=== PATIENT | female | born 1950 | race Caucasian/White ===

== ENCOUNTER 2016-08-18 12:33 | Emergency (ER) | payer OTHER ==
--- NOTE | 2016-08-18 13:49 | ED NURSING NOTES ---
Clinical Report - Nurses [facility] [place] [address] 08/18/2016 12:35 Patient: ARMANDO MUSE TRIAGE Triage time 12:46. Acuity: LEVEL 4. Chief Complaint: Location of symptoms- (Right shoudler pain, shoulder impingement. Pt has chronic shoulder pain.). 12:58 08/18/16. SEPSIS SCREEN: Sepsis Screen. Negative (no infection suspected/documented). CANDIDA COMA SCORE: [place] Coma Scale: 15- eyes open spontaneously (4); best verbal response- oriented x 4 (5); best motor response- obeys commands (6). --12:58 Severo Underwood R.N. 12:46 08/18/16. BP: 160/94. HR: 83. RR: 20. O2 saturation: 94% on room air. Temp: 97.6 F (oral). Pain level now: 03/15. --12:58 Severo Underwood R.N. late entry -12:58. --13:46 Severo Underwood R.N. Weight: 102 kg stated. Height/Length: 66 inches Per Patient. BMI: 36.3. --12:54 Severo Underwood R.N. Medications MetFORMIN HCl Oral. --12:50 Severo Underwood R.N. Levoxyl Oral. --12:50 Severo Underwood R.N. Ibuprofen Oral. --12:50 Severo Underwood R.N. Adderall Oral 10 mg, 3x a day. --12:50 Severo Underwood R.N. Allergies morphine.(nausea, vomiting) --12:48 Severo Underwood R.N. Tylenol.(nausea, vomiting) --12:49 Severo Underwood R.N. History Arrived by private vehicle. Historian: patient. Provoking / relieving factors: worsened by movement. ( Pt has had to change doctors (her doctor retired). She cant't get in to her referral doctor until the .). SOCIAL HX: Smoker- current status unknown. No alcohol use or drug use. ABUSE ASSESSMENT: No report of abuse. --12:58 Severo Underwood R.N. SOCIAL HX: Former smoker, end date 2010 (cigarette). --13:46 Severo Underwood R.N. PROBLEMS: Abrasion(s). URI. Abscess. Cellulitis. Sinusitis. Contusion. Tetanus Status. Thyroid Disease. Lumbar Radiculopathy. Immunizations. LNMP - Last Normal Menstrual Period. --12:51 Severo Undrewood R.N. Diabetes Mellitus. --12:52 Severo Underwood R.N. ADDITIONAL SURGERIES: Bladder Suspension. Tonsillectomy. --12:51 Severo Underwood R.N. Interventions ID band on patient. To treatment room. --12:58 Severo Underwood R.N. PHYSICAL ASSESSMENT 12:58. Ambulatory to room. GENERAL / NEURO / PSYCH: Oriented X 4. Alert. Appears in pain. (manic). EXTREMITIES: Right shoulder: tenderness. Limited ROM (diminished abduction and adduction). --13:06 Severo Underwood R.N. NURSING PROGRESS NOTES 12:58 08/18/16. Patient gowned. Reassurance given. Two patient identifiers checked. Call light placed in reach. Bed placed in lowest position. Brakes of bed on. Patient ready for evaluation- chart flagged. --12:58 Severo Underwood R.N. 13:55 08/18/2016 Toradol (Ketorolac Tromethamine) IM 60 mg given. Given in the right deltoid. Allergies verified and confirmed 5 rights. --13:59 Severo Underwood R.N. 13:55 08/18/2016 Decadron (Dexamethasone Sodium Phosphate) IM 8 mg given. Given in the left deltoid. --13:59 Severo Underwood R.N. 14:08/18/2016 Toradol IM Response: no adverse reaction. --15:41 Severo Underwood R.N. 14:08/18/2016 Decadron IM Response: no adverse reaction. --15:42 Severo Underwood R.N. DISPOSITION / DISCHARGE Departure time: 14:Aug 18 2016. Condition at departure: improved. No learning barriers present. Discharge instructions provided and reviewed with the patient. Reviewed warnings. Reviewed medication(s). Treatments reviewed. Reviewed referrals. Patient verbalized understanding. Written instructions provided in Estonian. The patient was discharged home. She left the Emergency Department ambulatory and via private vehicle. --14:01 Eusebio Reynolds R.N. 14:00 08/18/16. BP: 139/88. HR: 81. RR: 18. O2 saturation: 97%. Temp: 98.2 F. Pain level now 10/13. --14:01 Eusebio Reynolds R.N. Locked/Released at 08/18/2016 18:47 by Severo Underwood R.N.
--- NOTE | 2016-08-18 13:49 | ED ORDER SUMMARY ---
..... Patient: ARMANDO MUSE OrderSheet [facility] VisitID: [id number] [place] [address] 65y, F Registration Date/Time: 08/18/2016 ORDER SHEET Weight: 102.0 kg (stated) Allergies: morphine, Tylenol GENERAL ORDERS: MEDICATION ORDERS: Toradol IM 60 mg (NOW) (13:44 08/18/2016 HBivens A.R.N.P.) (13:59 JSimbeck R.N.) Decadron IM 8 mg (NOW) (13:44 08/18/2016 HBivens A.R.N.P.) (13:59 JSimbeck R.N.) IV FLUIDS: ORDER SHEET NOTES: [Electronically signed by Severo Underwood R.N. (18:47 08/18/2016)] [Electronically signed by Irene MorganR.N.P. (18:50 08/18/2016)] [Electronically locked/signed by Severo Underwood R.N. (18:47 08/18/2016)]
--- NOTE | 2016-08-18 13:49 | ED ORDER SUMMARY ---
..... Patient: ARMANDO MUSE OrderSheet [facility] VisitID: [id number] [place] [address] 65y, F Registration Date/Time: 08/18/2016 ORDER SHEET Weight: 102.0 kg (stated) Allergies: morphine, Tylenol GENERAL ORDERS: MEDICATION ORDERS: Toradol IM 60 mg (NOW) (13:44 08/18/2016 HBivens A.R.N.P.) (13:59 JSimbeck R.N.) Decadron IM 8 mg (NOW) (13:44 08/18/2016 HBivens A.R.N.P.) (13:59 JSimbeck R.N.) IV FLUIDS: ORDER SHEET NOTES: [Electronically signed by Severo Underwood R.N. (18:47 08/18/2016)] [Electronically signed by Irene MorganR.N.P. (18:50 08/18/2016)] [Electronically locked/signed by Severo Underwood R.N. (18:47 08/18/2016)]
--- NOTE | 2016-08-18 13:49 | ED CLINICAL REPORT ---
Clinical Report - Physicians/Mid Levels [facility] [address] [place] [address] 08/18/2016 12:35 Patient: ARMANDO MUSE Time Seen: 13:29; initial patient contact, initial documentation, patient care assumed. Arrived- By private vehicle. Historian- patient. HISTORY OF PRESENT ILLNESS Chief Complaint: UPPER EXTREMITY PAIN. Modifying factors- worsened by movement of arm. Made better by prescription medications. Not made better by anything. This started years ago and is still present. Severity is described as being moderate in degree. The quality is noted to be "pain" and similar to prior episodes. It is described as radiating to the right upper extremity and right hand. Symptoms located in the area of the right shoulder. No chest pain, difficulty breathing, swelling, motor loss or repetitive hand use at work. She has not had redness. Mild sensory loss involving the right hand (intermittent numbess, sometimes after sleeping on it or using it). Patient denies an injury. Similar symptoms previously: Chronically, as bad. ( states percocet worked good in past, tylenol and morphine make her sick). Recent medical care: The patient was seen recently in the office. ( went to [facility] yesterday, and that dr did nothing but give her referral to sports medicine, and that appt is 08/30, her old dr did cortizone injections, this dr did not and no rx given either, pt upset with that dr's care). REVIEW OF SYSTEMS No neck pain or abdominal pain. All systems otherwise negative, except as recorded above. PAST HISTORY See nurses notes. PROBLEMS: Abrasion(s). URI. Abscess. Cellulitis. Sinusitis. Contusion. Tetanus Status. Thyroid Disease. Lumbar Radiculopathy. Immunizations. LNMP - Last Normal Menstrual Period. --12:51 Severo Underwood R.N. Diabetes Mellitus. --12:52 Severo Underwood R.N. ADDITIONAL SURGERIES: Bladder Suspension. Tonsillectomy. --12:51 Severo Underwood R.N. SOCIAL HISTORY Former smoker. No alcohol use or drug use. No recent travel. Is a local resident. FAMILY HISTORY Negative. ADDITIONAL NOTES The nursing notes have been reviewed with agreement regarding the chief complaint, HPI, ROS, PMH and patient medications and allergies. PHYSICAL EXAM Vital Signs: 08/18/2016 12:46 BP: 160/94. HR: 83. RR: 20. O2 saturation: 94%. Temp: 97.6 F. Pain level now: 8/10. Have been reviewed as abnormal and appear to be correct. Appearance: Alert. Oriented X3. No acute distress. Eyes: Pupils equal, round and reactive to light. Eyes normal inspection. Neck: Normal inspection. Neck supple. CVS: Normal heart rate and rhythm. Heart sounds normal. Respiratory: No respiratory distress. Breath sounds normal. Back: Normal inspection. No tenderness. ROM normal. Skin: Skin intact. Skin warm and dry. Normal skin color. Normal skin turgor. Extremities: Upper extremities abnormal to inspection. Upper extremities do not exhibit normal ROM. Upper extremities nontender. No upper extremity edema. Right shoulder. Limited ROM due to pain (diminished abduction and external rotation). Neurovascular intact distally. No erythema, tenderness, swelling, abrasion or ecchymosis. No puncture wound, foreign body or deformity. No localization or joint effusion. Extremities otherwise negative. Neuro: Oriented X 3. No motor deficit. No sensory deficit. PROGRESS AND PROCEDURES Course of Care: 16:16 08/18/16. staff informing pt called twice, first phone call, pt reported to LIAT Carmichael, that pharmacy didn't have the percocet, Jany asked my input, pt instructed to have pharmacy call me to substitute med rivet bucker Xu now informing me pt called mad, yelling at him, asking why would I prescribe that med that med was prescribed because pt asked specifically for percocet without tylenol pt on her way back up here demanding a new rx 17:08/18/16. pt now here, demanding new rx, changed to Ultram, pt does not want Ultram, pt still demanding plain percocet, pt also saying now she is going to the board to complain, went thru list of meds in computer list, plain percocet is not an option at the 5mg strength pt demanding, now attempting percodan and hand changing the strength, concerned that pharmacy will not fill it if changed by hand 17:13 08/18/16. dr zafar showing me a different way to order oxycodne, so attempting that. Patient counseled in person regarding the patient's stable condition and diagnosis. 13:49. Differential Diagnosis: I considered stress fracture, degenerative joint disease, arthritis, gout, pseudogout, rotator cuff tear, acromioclavicular separation, lateral epicondylitis, tendonitis, myositis, fasciitis and bursitis as a possible cause of upper extremity pain in this patient. This is a partial list of diagnoses considered. Other possible considerations: nerve impingement, substance abuse, chronic shoulder pain. Above considerations are based on history and physical exam. Differential diagnosis was discussed with patient. Disposition: Discharged home in good and improved condition (13:49). Condition: good and stable. CLINICAL IMPRESSION Chronic upper extremity pain involving the right shoulder. INSTRUCTIONS (htn). Warnings: GENERAL WARNINGS: Return or contact your physician immediately if your condition worsens or changes unexpectedly, if not improving as expected, or if other problems arise. Specifically return if problem worsens. Prescription Medications: Naproxen 500 mg tablets: take 1 orally every 12 hours as needed for pain. Dispense twenty (20). No refills. Medrol Dosepak: take according to package directions. Dispense one (1) dosepak. No refills. Substitution is permissible. Oxycodone 5 mg tablets: take 1 orally every 6 hours as needed for pain. Dispense fifteen (15). No refills. Follow-up: Follow up with a physical therapist Sports Medicine in about two weeks as scheduled even if well. Summary of care provided to patient. Screening today revealed the patient's blood pressure to be in the hypertensive range. The patient should follow up with a primary care provider for blood pressure management. Understanding of the discharge instructions verbalized by patient. (Electronically signed by Irene Morgan A.R.N.P. 08/18/2016 18:50)
--- NOTE | 2016-08-18 13:49 | ED NURSING NOTES ---
Clinical Report - Nurses [facility] [place] [address] 08/18/2016 12:35 Patient: ARMANDO MUSE TRIAGE Triage time 12:46. Acuity: LEVEL 4. Chief Complaint: Location of symptoms- (Right shoudler pain, shoulder impingement. Pt has chronic shoulder pain.). 12:58 08/18/16. SEPSIS SCREEN: Sepsis Screen. Negative (no infection suspected/documented). CANDIDA COMA SCORE: [place] Coma Scale: 15- eyes open spontaneously (4); best verbal response- oriented x 4 (5); best motor response- obeys commands (6). --12:58 Severo Underwood R.N. 12:46 08/18/16. BP: 160/94. HR: 83. RR: 20. O2 saturation: 94% on room air. Temp: 97.6 F (oral). Pain level now: 03/15. --12:58 eSvero Underwood R.N. late entry -12:58. --13:46 Severo Underwood R.N. Weight: 102 kg stated. Height/Length: 66 inches Per Patient. BMI: 36.3. --12:54 Severo Underwood R.N. Medications MetFORMIN HCl Oral. --12:50 Severo Underwood R.N. Levoxyl Oral. --12:50 Severo Underwood R.N. Ibuprofen Oral. --12:50 Severo Underwood R.N. Adderall Oral 10 mg, 3x a day. --12:50 Severo Underwood R.N. Allergies morphine.(nausea, vomiting) --12:48 Severo Underwood R.N. Tylenol.(nausea, vomiting) --12:49 Severo Underwood R.N. History Arrived by private vehicle. Historian: patient. Provoking / relieving factors: worsened by movement. ( Pt has had to change doctors (her doctor retired). She cant't get in to her referral doctor until the .). SOCIAL HX: Smoker- current status unknown. No alcohol use or drug use. ABUSE ASSESSMENT: No report of abuse. --12:58 Severo Underwood R.N. SOCIAL HX: Former smoker, end date 2010 (cigarette). --13:46 Severo Underwood R.N. PROBLEMS: Abrasion(s). URI. Abscess. Cellulitis. Sinusitis. Contusion. Tetanus Status. Thyroid Disease. Lumbar Radiculopathy. Immunizations. LNMP - Last Normal Menstrual Period. --12:51 Severo Underwood R.N. Diabetes Mellitus. --12:52 Severo Underwood R.N. ADDITIONAL SURGERIES: Bladder Suspension. Tonsillectomy. --12:51 Severo Underwood R.N. Interventions ID band on patient. To treatment room. --12:58 Severo Underwood R.N. PHYSICAL ASSESSMENT 12:58. Ambulatory to room. GENERAL / NEURO / PSYCH: Oriented X 4. Alert. Appears in pain. (manic). EXTREMITIES: Right shoulder: tenderness. Limited ROM (diminished abduction and adduction). --13:06 Severo Underwood R.N. NURSING PROGRESS NOTES 12:58 08/18/16. Patient gowned. Reassurance given. Two patient identifiers checked. Call light placed in reach. Bed placed in lowest position. Brakes of bed on. Patient ready for evaluation- chart flagged. --12:58 Severo Underwood R.N. 13:55 08/18/2016 Toradol (Ketorolac Tromethamine) IM 60 mg given. Given in the right deltoid. Allergies verified and confirmed 5 rights. --13:59 Severo Underwood R.N. 13:55 08/18/2016 Decadron (Dexamethasone Sodium Phosphate) IM 8 mg given. Given in the left deltoid. --13:59 Severo Underwood R.N. 14:08/18/2016 Toradol IM Response: no adverse reaction. --15:41 Severo Underwood R.N. 14:08/18/2016 Decadron IM Response: no adverse reaction. --15:42 Severo Underwood R.N. DISPOSITION / DISCHARGE Departure time: 14:Aug 18 2016. Condition at departure: improved. No learning barriers present. Discharge instructions provided and reviewed with the patient. Reviewed warnings. Reviewed medication(s). Treatments reviewed. Reviewed referrals. Patient verbalized understanding. Written instructions provided in Swedish. The patient was discharged home. She left the Emergency Department ambulatory and via private vehicle. --14:01 Eusebio Reynolds R.N. 14:00 08/18/16. BP: 139/88. HR: 81. RR: 18. O2 saturation: 97%. Temp: 98.2 F. Pain level now 10/13. --14:01 Eusebio Reynolds R.N. Locked/Released at 08/18/2016 18:47 by Severo Underwood R.N.
--- NOTE | 2016-08-18 18:51 | ED DISCHARGE INSTRUCTIONS ---
Patient: ARMANDO MUSE General Instructions [facility] VisitID: [id number] [place] [address] 65y, F Registration Date/Time: 08/18/2016 Chronic upper extremity pain involving the right shoulder. INSTRUCTIONS (htn). Warnings: GENERAL WARNINGS: Return or contact your physician immediately if your condition worsens or changes unexpectedly, if not improving as expected, or if other problems arise. Specifically return if problem worsens. Prescription Medications: Naproxen 500 mg tablets: take 1 orally every 12 hours as needed for pain. Dispense twenty (20). No refills. Medrol Dosepak: take according to package directions. Dispense one (1) dosepak. No refills. Substitution is permissible. Oxycodone 5 mg tablets: take 1 orally every 6 hours as needed for pain. Dispense fifteen (15). No refills. Follow-up: Follow up with a physical therapist Sports Medicine in about two weeks as scheduled even if well. Summary of care provided to patient. Screening today revealed the patient's blood pressure to be in the hypertensive range. The patient should follow up with a primary care provider for blood pressure management. Understanding of the discharge instructions verbalized by patient. ADDITIONAL INFORMATION Osteoarthritis Osteoarthritis (also called Degenerative Joint Disease) is the most common form of arthritis in adults over 50. It is not the same as Rheumatoid Arthritis. The exact cause is not known but may be related to excess wear and tear on the joint over a long period of time. Prior injury to that joint, or repeated stress on a joint can also cause this type of arthritis. Osteoarthritis most often affects the hands, knees, spine and hips (in that order). The most common symptoms are joint stiffness, pain and swelling. Home Care: When a joint is more sore than usual, rest that joint for a day or two. Heat is very helpful. This can be provided by taking hot baths, applying a heating pad for up to 30 minutes at a time. Because symptoms are usually worse in the morning, many patients like to take a hot bath just after awakening to relax the muscle and soothe the joints. Exercise is the most important part of home treatment for osteoarthritis. This prevents the muscles and ligaments around the joint from becoming weak and helps maintain the full range of joint motion. This limits further damage to the joint. If you are overweight, this puts a lot of extra strain on weight-bearing joints of the lower back, hips, knees, feet and ankles. Losing weight will improve your arthritis symptoms in these joints. Talk to your doctor about a safe and effective weight loss program for yourself. Anti-inflammatory medicine such as ibuprofen (Advil, Motrin) or naproxen (Aleve) is often used to treat this condition. If this alone is not helping, your doctor may prescribe a stronger medicine. If narcotic pain medicines have been prescribed, they should be used in addition to anti-inflammatory drugs and only for severe pain. Follow Up with your doctor as advised by our staff. Get Prompt Medical Attention if any of the following occur: Redness or swelling of a painful joint Fever of 100.4F (38C) or higher, or as directed by your healthcare provider Worsening joint pain Shoulder Pain (Uncertain Cause) Shoulder pain often arises from the structures that surround the shoulder joint (the joint capsule, ligaments, tendons, muscles, and bursa). The joint itself contains cartilage that can become worn out or injured and can also be a source of pain. The correct treatment requires knowing the cause of the pain. Sometimes it is difficult to diagnose the exact cause of shoulder pain and referral to a specialist may be required. You may eventually need special tests such as CT scan, MRI, or arthroscopy (a procedure that uses special instruments to look inside the joint through a small incision). Shoulder pain can be treated initially with a sling or shoulder immobilizer and anti-inflammatory medicines such as ibuprofen. Special shoulder exercises may be needed. Follow-up with a specialist is important when pain is severe or does not go away after a few weeks. Home Care: If a sling was provided, leave it in place for the time advised by your doctor. If you are unsure how long to wear it, ask for advice. If the sling becomes loose, adjust it so that your forearm is level with the ground and the shoulder feels well supported. Apply an ice pack (ice cubes in a plastic bag, wrapped in a towel) over the injured area for 20 minutes every 1 to 2 hours the first day for pain relief. Continue this 3 to 4 times a day until the pain and swelling go away. You may use acetaminophen (Tylenol) or ibuprofen (Motrin, Advil) to control pain, unless another pain medicine was prescribed. (NOTE: If you have chronic liver or kidney disease or ever had a stomach ulcer or GI bleeding, talk with your doctor before using these medicines.) Shoulder pain may seem worse at night, when there is less to distract you from the pain. If you sleep on your side, try to keep your weight off your painful shoulder. Propping pillows behind you may prevent you from rolling over onto that shoulder during sleep. Shoulder joints become stiff if left in a sling for too long. [id number] exercises should usually be started within the first 10 days after injury. Consult your doctor on what type of exercises to do and how soon to start. You may remove the sling to shower or bathe. Follow Up with your doctor, or as advised by our staff, if you are not starting to improve within the next 5 days. Get Prompt Medical Attention if any of the following occur: Pain or swelling increases Hand or fingers becomes cold, blue, numb, or tingly Large amount of bruising of the shoulder or upper arm Naproxen Sodium Oral tablet What is this medicine? NAPROXEN (na PROX en) is a non-steroidal anti-inflammatory drug (NSAID). It is used to reduce swelling and to treat pain. This medicine may be used for dental pain, headache, or painful monthly periods. It is also used for painful joint and muscular problems such as arthritis, tendinitis, bursitis, and gout. How should I use this medicine? Take this medicine by mouth with a glass of water. Follow the directions on the prescription label. Take it with food if your stomach gets upset. Try to not lie down for at least 10 minutes after you take it. Take your medicine at regular intervals. Do not take your medicine more often than directed. Long-term, continuous use may increase the risk of heart attack or stroke. A special MedGuide will be given to you by the pharmacist with each prescription and refill. Be sure to read this information carefully each time. Talk to your time analysis clerk regarding the use of this medicine in children. Special care may be needed. What side effects may I notice from receiving this medicine? Side effects that you should report to your doctor or health director of career services as soon as possible: black or bloody stools, blood in the urine or vomit blurred vision chest pain difficulty breathing or wheezing nausea or vomiting severe stomach pain skin rash, skin redness, blistering or peeling skin, hives, or itching slurred speech or weakness on one side of the body swelling of eyelids, throat, lips unexplained weight gain or swelling unusually weak or tired yellowing of eyes or skin Side effects that usually do not require medical attention (report to your doctor or health director of career services if they continue or are bothersome): constipation headache heartburn What may interact with this medicine? alcohol aspirin cidofovir diuretics lithium methotrexate other drugs for inflammation like ketorolac or prednisone pemetrexed probenecid warfarin What if I miss a dose? If you miss a dose, take it as soon as you can. If it is almost time for your next dose, take only that dose. Do not take double or extra doses. Where should I keep my medicine? Keep out of the reach of children. Store at room temperature between 15 and 30 degrees C (59 and 86 degrees F). Keep container tightly closed. Throw away any unused medicine after the expiration date. What should I tell my health care provider before I take this medicine? They need to know if you have any of these conditions: asthma cigarette smoker drink more than 3 alcohol containing drinks a day heart disease or circulation problems such as heart failure or leg edema (fluid retention) high blood pressure kidney disease liver disease stomach bleeding or ulcers an unusual or allergic reaction to naproxen, aspirin, other NSAIDs, other medicines, foods, dyes, or preservatives or trying to get breast-feeding What should I watch for while using this medicine? Tell your doctor or health director of career services if your pain does not get better. Talk to your doctor before taking another medicine for pain. Do not treat yourself. This medicine does not prevent heart attack or stroke. In fact, this medicine may increase the chance of a heart attack or stroke. The chance may increase with longer use of this medicine and in people who have heart disease. If you take aspirin to prevent heart attack or stroke, talk with your doctor or health director of career services. Do not take other medicines that contain aspirin, ibuprofen, or naproxen with this medicine. Side effects such as stomach upset, nausea, or ulcers may be more likely to occur. Many medicines available without a prescription should not be taken with this medicine. This medicine can cause ulcers and bleeding in the stomach and intestines at any time during treatment. Do not smoke cigarettes or drink alcohol. These increase irritation to your stomach and can make it more susceptible to damage from this medicine. Ulcers and bleeding can happen without warning symptoms and can cause . You may get drowsy or dizzy. Do not drive, use machinery, or do anything that needs mental alertness until you know how this medicine affects you. Do not stand or sit up quickly, especially if you are an older patient. This reduces the risk of dizzy or fainting spells. This medicine can cause you to bleed more easily. Try to avoid damage to your teeth and gums when you brush or floss your teeth. Methylprednisolone Oral tablet What is this medicine? METHYLPREDNISOLONE (meth ill pred NISS oh lone) is a corticosteroid. It is commonly used to treat inflammation of the skin, joints, lungs, and other organs. Common conditions treated include asthma, allergies, and arthritis. It is also used for other conditions, such as blood disorders and diseases of the adrenal glands. How should I use this medicine? Take this medicine by mouth with a drink of water. Follow the directions on the prescription label. Take it with food or milk to avoid stomach upset. If you are taking this medicine once a day, take it in the morning. Do not take more medicine than you are told to take. Do not suddenly stop taking your medicine because you may develop a severe reaction. Your doctor will tell you how much medicine to take. If your doctor wants you to stop the medicine, the dose may be slowly lowered over time to avoid any side effects. Talk to your time analysis clerk regarding the use of this medicine in children. Special care may be needed. What side effects may I notice from receiving this medicine? Side effects that you should report to your doctor or health director of career services as soon as possible: allergic reactions like skin rash, itching or hives, swelling of the face, lips, or tongue eye pain, decreased or blurred vision, or bulging eyes fever, sore throat, sneezing, cough, or other signs of infection, wounds that will not heal increased thirst mental depression, mood swings, mistaken feelings of self importance or of being mistreated pain in hips, back, ribs, arms, shoulders, or legs swelling of the ankles, feet, hands trouble passing urine or change in the amount of urine Side effects that usually do not require medical attention (report to your doctor or health director of career services if they continue or are bothersome): confusion, excitement, restlessness headache nausea, vomiting skin problems, acne, thin and shiny skin weight gain What may interact with this medicine? Do not take this medicine with any of the following medications: mifepristone This medicine may also interact with the following medications: tacrolimus vaccines warfarin What if I miss a dose? If you miss a dose, take it as soon as you can. If it is almost time for your next dose, talk to your doctor or health director of career services. You may need to miss a dose or take an extra dose. Do not take double or extra doses without advice. Where should I keep my medicine? Keep out of the reach of children. Store at room temperature between 20 and 25 degrees C (68 and 77 degrees F). Throw away any unused medicine after the expiration date. What should I tell my health care provider before I take this medicine? They need to know if you have any of these conditions: Rosetta's syndrome diabetes glaucoma heart problems or disease high blood pressure infection such as herpes, measles, tuberculosis, or chickenpox kidney disease liver disease mental problems myasthenia gravis osteoporosis seizures stomach ulcer or intestine disease including colitis and diverticulitis thyroid problem an unusual or allergic reaction to lactose, methylprednisolone, other medicines, foods, dyes, or preservatives or trying to get breast-feeding What should I watch for while using this medicine? Visit your doctor or health director of career services for regular checks on your progress. If you are taking this medicine for a long time, carry an identification card with your name and address, the type and dose of your medicine, and your doctor's name and address. The medicine may increase your risk of getting an infection. Stay away from people who are sick. Tell your doctor or health director of career services if you are around anyone with measles or chickenpox. If you are going to have surgery, tell your doctor or health director of career services that you have taken this medicine within the last twelve months. Ask your doctor or health director of career services about your diet. You may need to lower the amount of salt you eat. The medicine can increase your blood sugar. If you are a diabetic check with your doctor if you need help adjusting the dose of your diabetic medicine. Oxycodone Hydrochloride, Acetaminophen Oral tablet What is this medicine? ACETAMINOPHEN; OXYCODONE (a set a MIGUEL enzo fen; ox i KOE done) is a pain reliever. It is used to treat mild to moderate pain. How should I use this medicine? Take this medicine by mouth with a full glass of water. Follow the directions on the prescription label. Take your medicine at regular intervals. Do not take your medicine more often than directed. Talk to your time analysis clerk regarding the use of this medicine in children. Special care may be needed. Patients over 65 years old may have a stronger reaction and need a smaller dose. What side effects may I notice from receiving this medicine? Side effects that you should report to your doctor or health director of career services as soon as possible: allergic reactions like skin rash, itching or hives, swelling of the face, lips, or tongue breathing difficulties, wheezing confusion light headedness or fainting spells severe stomach pain yellowing of the skin or the whites of the eyes Side effects that usually do not require medical attention (report to your doctor or health director of career services if they continue or are bothersome): dizziness drowsiness nausea vomiting What may interact with this medicine? alcohol antihistamines barbiturates like amobarbital, butalbital, butabarbital, methohexital, pentobarbital, phenobarbital, thiopental, and secobarbital benztropine drugs for bladder problems like solifenacin, trospium, oxybutynin, tolterodine, hyoscyamine, and methscopolamine drugs for breathing problems like ipratropium and tiotropium drugs for certain stomach or intestine problems like propantheline, homatropine methylbromide, glycopyrrolate, atropine, belladonna, and dicyclomine general anesthetics like etomidate, ketamine, nitrous oxide, propofol, desflurane, enflurane, halothane, isoflurane, and sevoflurane medicines for depression, anxiety, or psychotic disturbances medicines for sleep muscle relaxants naltrexone narcotic medicines (opiates) for pain phenothiazines like perphenazine, thioridazine, chlorpromazine, mesoridazine, fluphenazine, prochlorperazine, promazine, and trifluoperazine scopolamine tramadol trihexyphenidyl What if I miss a dose? If you miss a dose, take it as soon as you can. If it is almost time for your next dose, take only that dose. Do not take double or extra doses. Where should I keep my medicine? Keep out of the reach of children. This medicine can be abused. Keep your medicine in a safe place to protect it from theft. Do not share this medicine with anyone. Selling or giving away this medicine is dangerous and against the law. Store at room temperature between 20 and 25 degrees C (68 and 77 degrees F). Keep container tightly closed. Protect from light. This medicine may cause accidental overdose and if it is taken by other adults, children, or pets. Flush any unused medicine down the toilet to reduce the chance of harm. Do not use the medicine after the expiration date. What should I tell my health care provider before I take this medicine? They need to know if you have any of these conditions: brain tumor Crohn's disease, inflammatory bowel disease, or ulcerative colitis drink more than 3 alcohol containing drinks per day drug abuse or addiction head injury heart or circulation problems kidney disease or problems going to the bathroom liver disease lung disease, asthma, or breathing problems an unusual or allergic reaction to acetaminophen, oxycodone, other opioid analgesics, other medicines, foods, dyes, or preservatives or trying to get breast-feeding What should I watch for while using this medicine? Tell your doctor or health director of career services if your pain does not go away, if it gets worse, or if you have new or a different type of pain. You may develop tolerance to the medicine. Tolerance means that you will need a higher dose of the medication for pain relief. Tolerance is normal and is expected if you take this medicine for a long time. Do not suddenly stop taking your medicine because you may develop a severe reaction. Your body becomes used to the medicine. This does NOT mean you are addicted. Addiction is a behavior related to getting and using a drug for a non-medical reason. If you have pain, you have a medical reason to take pain medicine. Your doctor will tell you how much medicine to take. If your doctor wants you to stop the medicine, the dose will be slowly lowered over time to avoid any side effects. You may get drowsy or dizzy. Do not drive, use machinery, or do anything that needs mental alertness until you know how this medicine affects you. Do not stand or sit up quickly, especially if you are an older patient. This reduces the risk of dizzy or fainting spells. Alcohol may interfere with the effect of this medicine. Avoid alcoholic drinks. There are different types of narcotic medicines (opiates) for pain. If you take more than one type at the same time, you may have more side effects. Give your health care provider a list of all medicines you use. Your doctor will tell you how much medicine to take. Do not take more medicine than directed. Call emergency for help if you have problems breathing. The medicine will cause constipation. Try to have a bowel movement at least every 2 to 3 days. If you do not have a bowel movement for 3 days, call your doctor or health director of career services. Do not take Tylenol (acetaminophen) or medicines that have acetaminophen with this medicine. Too much acetaminophen can be very dangerous. Many nonprescription medicines contain acetaminophen. Always read the labels carefully to avoid taking more acetaminophen. You have been given the following additional information: Osteoarthritis Shoulder Pain (Uncertain Cause) Naproxen Sodium Oral tablet Methylprednisolone Oral tablet Oxycodone Hydrochloride, Acetaminophen Oral tablet (Electronically signed by Irene Morgan A.R.N.P. 08/18/2016 18:50)
--- NOTE | 2016-08-18 18:51 | ED MAR SUMMARY ---
..... Medication Administration Record [facility] [address] [place] [address] Patient: ARMANDO MUSE Visit ID: [id number] 65y, F Weight: 102.0 kg Height/Length: 66 in BMI: 36.3 ALLERGIES: Tylenol, morphine Given 13:08/18/2016 Severo Underwood R.N. Medication Administered: TORADOL [IM] (KETOROLAC TROMETHAMINE), Dose: 60 mg IM. Medication Ordered: Toradol IM 60 mg (NOW). Given 13:08/18/2016 Severo Underwood R.N. Medication Administered: DECADRON [IM] (DEXAMETHASONE SODIUM PHOSPHATE), Dose: 8 mg IM. Medication Ordered: Decadron IM 8 mg (NOW).
--- NOTE | 2016-08-18 18:51 | ED MED RECONCILIATION SUMMARY ---
Patient: ARMANDO MUSE Medication Reconciliation Report [facility] VisitID: [id number] [place] [address] 65y, F Registration Date/Time: 08/18/2016 Weight: 102.0 kg Height/Length: 66 in. BMI: 36.3 ALLERGIES: morphine, Tylenol The patient's Home Medications are listed below: THE FOLLOWING MEDICATIONS NEED TO BE RECONCILED: Adderall Oral 10 mg, 3x a day Ibuprofen Oral Levoxyl Oral MetFORMIN HCl Oral The source(s) of the original Home Medication information: Not obtained. The following Medications were given to the patient in the Emergency Department: Toradol [IM] IM 60 mg, administered: 08/18/2016 1:55:00 PM Decadron [IM] IM 8 mg, administered: 08/18/2016 1:55:00 PM The following Medications were prescribed to the patient: Naproxen 500 mg tablets: take 1 orally every 12 hours as needed for pain. Dispense twenty (20). No refills. -- Irene Morgan A.R.N.P. Medrol Dosepak: take according to package directions. Dispense one (1) dosepak. No refills. Substitution is permissible. -- Irene Morgan A.R.N.P. Oxycodone 5 mg tablets: take 1 orally every 6 hours as needed for pain. Dispense fifteen (15). No refills. -- Irene Morgan A.R.N.P.
--- NOTE | 2016-08-18 18:51 | ED MAR SUMMARY ---
..... Medication Administration Record [facility] [address] [place] [address] Patient: ARMANDO MUSE Visit ID: [id number] 65y, F Weight: 102.0 kg Height/Length: 66 in BMI: 36.3 ALLERGIES: Tylenol, morphine Given 13:08/18/2016 Severo Underwood R.N. Medication Administered: TORADOL [IM] (KETOROLAC TROMETHAMINE), Dose: 60 mg IM. Medication Ordered: Toradol IM 60 mg (NOW). Given 13:08/18/2016 Severo Underwood R.N. Medication Administered: DECADRON [IM] (DEXAMETHASONE SODIUM PHOSPHATE), Dose: 8 mg IM. Medication Ordered: Decadron IM 8 mg (NOW).
--- NOTE | 2016-08-18 18:51 | ED MED RECONCILIATION SUMMARY ---
Patient: ARMANDO MUSE Medication Reconciliation Report [facility] VisitID: [id number] [place] [address] 65y, F Registration Date/Time: 08/18/2016 Weight: 102.0 kg Height/Length: 66 in. BMI: 36.3 ALLERGIES: morphine, Tylenol The patient's Home Medications are listed below: THE FOLLOWING MEDICATIONS NEED TO BE RECONCILED: Adderall Oral 10 mg, 3x a day Ibuprofen Oral Levoxyl Oral MetFORMIN HCl Oral The source(s) of the original Home Medication information: Not obtained. The following Medications were given to the patient in the Emergency Department: Toradol [IM] IM 60 mg, administered: 08/18/2016 1:55:00 PM Decadron [IM] IM 8 mg, administered: 08/18/2016 1:55:00 PM The following Medications were prescribed to the patient: Naproxen 500 mg tablets: take 1 orally every 12 hours as needed for pain. Dispense twenty (20). No refills. -- Irene Morgan A.R.N.P. Medrol Dosepak: take according to package directions. Dispense one (1) dosepak. No refills. Substitution is permissible. -- Irene Morgan A.R.N.P. Oxycodone 5 mg tablets: take 1 orally every 6 hours as needed for pain. Dispense fifteen (15). No refills. -- Irene Morgan A.R.N.P.
== END 2016-08-18 14:00 | disposition home or self-care (01) ==
LOC: ED SRH 12:33
DX: G89.29 Other chronic pain (principal); M25.511 Pain in right shoulder; E11.9 Type 2 diabetes mellitus without complications; Z79.84 Long term (current) use of oral hypoglycemic drugs; Z79.1 Long term (current) use of non-steroidal anti-inflammatories (NSAID); Z88.5 Allergy status to narcotic agent; Z88.6 Allergy status to analgesic agent; Z87.891 Personal history of nicotine dependence

== ENCOUNTER 2017-01-16 12:07 | Emergency (ER) | payer OTHER ==
--- NOTE | 2017-01-16 13:37 | ED CLINICAL REPORT ---
Clinical Report - Physicians/Mid Levels [facility] [address] [place] [address] 01/16/2017 12:08 Patient: ARMANDO MUSE Time Seen: 13:14; initial patient contact, initial documentation, patient care assumed. Arrived- By private vehicle. Historian- patient. HISTORY OF PRESENT ILLNESS Chief Complaint: EARACHE. Modifying factors. Not worsened by anything. Not relieved by anything. This started about 3 days ago and is still present. It was abrupt in onset and has been constant. Location- left ear. The pain is described as severe. The patient has had moderate left ear pain. No ear drainage, hearing loss, nasal discharge or congestion or sinus pressure. No complaint of foreign body in the ear, ear trauma or sore throat. (pain is on L side of neck, feels spasms in neck, pain shoots into face, into eye, feels similar to thing she had on R side of neck when she had a nerve impingement issue, went away after help from chiropractor, pain also goes into jaw and shoulder). Similar symptoms previously: None. Recent medical care: Not recently seen/assessed. REVIEW OF SYSTEMS No fever, difficulty breathing or chest pain. All systems otherwise negative, except as recorded above. PAST HISTORY See nurses notes. PROBLEMS: Upper Extremity Pain. Diabetes Mellitus. URI. Abscess. Cellulitis. Sinusitis. Contusion. Tetanus Status. Thyroid Disease. Lumbar Radiculopathy. Immunizations. --12:17 Shanda Mcdermott RSarmadN. ADDITIONAL SURGERIES: Bladder Suspension. Tonsillectomy. --12:17 Shanda Mcdermott RSarmadN. SOCIAL HISTORY Former smoker. Not exposed to second-hand smoke at home. No alcohol use or drug use. No recent travel. Is a local resident. FAMILY HISTORY Negative. ADDITIONAL NOTES The nursing notes have been reviewed with agreement regarding the chief complaint, HPI, ROS, PMH and patient medications and allergies. PHYSICAL EXAM Vital Signs: 01/16/2017 12:16 BP: 134/69. HR: 103. RR: 18. O2 saturation: 98%. Temp: 97.8 F. Pain level now: 04/15. Have been reviewed as abnormal and appear to be correct. Blood pressure normal. Tachycardic. Respiratory rate normal. Temperature normal. Oxygen saturation normal. Appearance: Alert. No acute distress. Eyes: Eyes normal inspection. Nose: Nose normal. Ear (right): Right ear normal. Right tympanic membrane normal. Ear (left): Left ear normal. Left tympanic membrane normal. Throat: Pharynx normal. Neck: Normal inspection. Neck supple. Respiratory: No respiratory distress. Back: Normal inspection. Skin: Skin warm and dry. Normal skin color. No rash. Normal skin turgor. Extremities: Extremities exhibit normal ROM. No lower extremity edema. Neuro: Oriented X 3. No motor deficit. No sensory deficit. PROGRESS AND PROCEDURES Course of Care: 13:30 01/16/17. nurse reporting she went to do ekg and pt was gone 13:37 01/16/17. nurse reporting pt refusing ekg, agreed to dc, pt asking for pain shot 1345. nurse now reporting pt left prior to shot. Patient/family counseled in person regarding the patient's stable condition and diagnosis. Differential Diagnosis: Other possible considerations: dental pain, abscess, caries, aoe, aom, perforated tm, pharyngitis, nerve impingement syndrome, cervical stenosis, oa, ddd, mi, angina. Above considerations are based on history and physical exam. Differential diagnosis was discussed with patient. Disposition: Discharged home in good and unchanged condition (13:37). Condition: good and stable. CLINICAL IMPRESSION Acute pain in the left ear and neck. INSTRUCTIONS Warnings: GENERAL WARNINGS: Return or contact your physician immediately if your condition worsens or changes unexpectedly, if not improving as expected, or if other problems arise. Specifically return if problem worsens. Prescription Medications: Ultram 50 mg tablets: take 1-2 orally every 6 hours as needed for pain. Dispense twenty (20). No refills. Substitution is permissible. Flexeril 10 mg: Take 1 orally every 8 hours as needed for muscle spasm. Dispense twenty (20). No refills. Substitution is permissible. Follow-up: Follow up with your doctor in about two days even if well. Call for an appointment. Summary of care provided to patient. Understanding of the discharge instructions verbalized by patient. (Electronically signed by Irene Morgan A.R.N.P. 01/16/2017 17:56)
--- NOTE | 2017-01-16 13:37 | ED ORDER SUMMARY ---
..... Patient: ARMANDO MUSE OrderSheet [facility] VisitID: [id number] [address] [place] [address] 66y, F Registration Date/Time: 01/16/2017 ORDER SHEET Weight: 90.7 kg (stated) Allergies: morphine, Tylenol GENERAL ORDERS: EKG - ER Stat (13:28 01/16/2017 HBivens A.R.N.P.) (Ack 13:30 LNations ER Tech1) (13:40 EHassan R.N.) (Cancelled: Patient [id number]:40 EHassan R.N.) MEDICATION ORDERS: Toradol IM 60 mg (NOW) (13:39 01/16/2017 HBivens A.R.N.P.) (Cancelled: Patient Ygcxahb12:46 EHassan R.N.) IV FLUIDS: ORDER SHEET NOTES: [Electronically signed by Shanda Mcdermott R.N. (13:48 01/16/2017)] [Electronically signed by Irene Morgan.R.N.P. (17:56 01/16/2017)] [Electronically locked/signed by Shanda Mcdermott R.N. (13:48 01/16/2017)]
--- NOTE | 2017-01-16 13:37 | ED ORDER SUMMARY ---
..... Patient: ARMANDO MUSE OrderSheet [facility] VisitID: [id number] [address] [place] [address] 66y, F Registration Date/Time: 01/16/2017 ORDER SHEET Weight: 90.7 kg (stated) Allergies: morphine, Tylenol GENERAL ORDERS: EKG - ER Stat (13:28 01/16/2017 HBivens A.R.N.P.) (Ack 13:30 LNations ER Tech1) (13:40 EHassan R.N.) (Cancelled: Patient Kermrrc49:40 EHassan R.N.) MEDICATION ORDERS: Toradol IM 60 mg (NOW) (13:39 01/16/2017 HBivens A.R.N.P.) (Cancelled: Patient Gjzwqqr32:46 EHassan R.N.) IV FLUIDS: ORDER SHEET NOTES: [Electronically signed by Shanda Mcdermott R.N. (13:48 01/16/2017)] [Electronically signed by Irene Morgan.R.N.P. (17:56 01/16/2017)] [Electronically locked/signed by Shanda Mcdermott R.N. (13:48 01/16/2017)]
--- NOTE | 2017-01-16 13:37 | ED NURSING NOTES ---
Clinical Report - Nurses [facility] [address] [place] [address] 01/16/2017 12:08 Patient: ARMANDO MUSE TRIAGE Triage time 1219 PM. Acuity: LEVEL 5. Alert. No acute distress. KELVIN COMA SCORE: Kelvin Coma Scale: 15- eyes open spontaneously (4); best verbal response- oriented x 4 (5); best motor response- obeys commands (6). --12:25 Shanda Mcdermott R.N. 12:16 01/16/17. BP: 134/69 (regular adult cuff) taken on the left arm, via an automated monitor, while sitting. HR: 103. RR: 18. O2 saturation: 98% on room air. Temp: 97.8 F. Pain level now: 04/15. --12:25 Shanda Mcdermott R.N. Chief Complaint: (Left ear pain). late entry - 12:16 PM. --13:48 Shanda Mcdermott R.N. Weight: 90.7 kg stated. Height/Length: 66 inches Per Patient. BMI: 32.3. --12:17 Shanda Mcdermott R.N. Medications Adderall Oral 10 mg, 3x a day. --12:17 Shanda Mcdermott R.N. Medication/allergy information source: the patient. --12:25 Shanda Mcdermott R.N. Allergies morphine.(nausea, vomiting) Tylenol.(nausea, vomiting) --12:17 Shanda Mcdermott R.N. History Arrived by private vehicle. Historian: patient. Unaccompanied. Primary physician (Dr. Leonard). ( Pt states that has been experiencing Left ear pain for about 3 days, denies any drainage, no fevers, pt does state that has been experiencing dental pain as well. Pt does state that her ear pain radiates to her left eye and also her left side of her neck.). This is a new problem. Symptoms are constant and still present (3 days). No fever, weakness, cough, difficulty breathing or skin rash. Denies muscle aches. 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 PAST MEDICAL HX: Immunizations: up-to-date. The patient is post-menopausal. SOCIAL HX: Former smoker. No alcohol use or drug use. No infectious disease exposure. ABUSE ASSESSMENT: No report of abuse. FALL RISK ASSESSMENT: Fall risk assessment completed. No fall risk identified. NUTRITIONAL RISK ASSESSMENT: The nutritional risk assessment revealed no deficiencies. FUNCTIONAL ASSESSMENT: Functional assessment: no impairments noted. LEARNING NEEDS ASSESSMENT: The learning needs assessment revealed no barriers. --12:25 Shanda Mcdermott R.N. PROBLEMS: Upper Extremity Pain. Diabetes Mellitus. URI. Abscess. Cellulitis. Sinusitis. Contusion. Tetanus Status. Thyroid Disease. Lumbar Radiculopathy. Immunizations. --12:17 Shanda Mcdermott R.N. ADDITIONAL SURGERIES: Bladder Suspension. Tonsillectomy. --12:17 Shanda Mcdermott R.N. Interventions ID band on patient. --12:25 Shanda Mcdermott R.N. PHYSICAL ASSESSMENT Ambulatory to room. GENERAL / NEURO / PSYCH: Alert. Oriented X 4. Appears in no acute distress. HEENT: Pupils equal, round and reactive to light. No facial asymmetry noted. Mucous membranes are pink. RESPIRATORY: Respirations not labored. Chest nontender. Breath sounds within normal limits. CVS: Capillary refill less than 2 seconds. Pulses within normal limits. GI / : Abdomen soft and nontender. SKIN: Skin intact. Skin is warm and dry. Normal skin turgor. --12:25 Shanda Mcdermott R.N. NURSING PROGRESS NOTES The initial plan of care for this patient has been created This plan of care was discussed with the patient. Reassurance given. Two patient identifiers checked. Call light placed in reach. Bed placed in lowest position. Brakes of bed on. Patient ready for evaluation- chart flagged and ED physician notified. --12:26 Shanda Mcdermott R.N. DISPOSITION / DISCHARGE Departure time: 1345 PM. Condition at departure: unchanged and stable. The goals identified in the patient's plan of care were met. No learning barriers present. Discharge instructions provided and reviewed with the patient. Reviewed warnings. Reviewed medication(s). Patient verbalized understanding. Written instructions provided in Panamanian. ( Pt refused EKG and toradol shot "wants to catch the bus"). No treatment instructions or referrals given to the patient. The patient was discharged by the nurse practitioner. She was discharged home and unaccompanied at time of discharge. She left the Emergency Department ambulatory and via bus. Patient driving. FALL RISK ASSESSMENT: Fall risk assessment completed. No fall risk identified. --13:47 Shanda Mcdermott R.N. 13:40 01/16/17. BP: 136/45. HR: 100. RR: 16. O2 saturation: 98%. Temp: 98.2 F. Pain level now: 03/15. --13:47 Shanda Mcdermott R.N. Locked/Released at 01/16/2017 13:48 by Shanda Mcdermott R.N.
--- NOTE | 2017-01-16 13:37 | ED NURSING NOTES ---
Clinical Report - Nurses [place] [facility] [address] [place] [address] 01/16/2017 12:08 Patient: ARMANDO MUSE TRIAGE Triage time 1219 PM. Acuity: LEVEL 5. Alert. No acute distress. KELVIN COMA SCORE: Kelvin Coma Scale: 15- eyes open spontaneously (4); best verbal response- oriented x 4 (5); best motor response- obeys commands (6). --12:25 Shanda Mcdermott R.N. 12:16 01/16/17. BP: 134/69 (regular adult cuff) taken on the left arm, via an automated monitor, while sitting. HR: 103. RR: 18. O2 saturation: 98% on room air. Temp: 97.8 F. Pain level now: 04/15. --12:25 Shanda Mcdermott R.N. Chief Complaint: (Left ear pain). late entry - 12:16 PM. --13:48 Shanda Mcdermott R.N. Weight: 90.7 kg stated. Height/Length: 66 inches Per Patient. BMI: 32.3. --12:17 Shanda Mcdermott R.N. Medications Adderall Oral 10 mg, 3x a day. --12:17 Shanda Mcdermott R.N. Medication/allergy information source: the patient. --12:25 Shanda Mcdermott R.N. Allergies morphine.(nausea, vomiting) Tylenol.(nausea, vomiting) --12:17 Shanda Mcdermott R.N. History Arrived by private vehicle. Historian: patient. Unaccompanied. Primary physician (Dr. Leonard). ( Pt states that has been experiencing Left ear pain for about 3 days, denies any drainage, no fevers, pt does state that has been experiencing dental pain as well. Pt does state that her ear pain radiates to her left eye and also her left side of her neck.). This is a new problem. Symptoms are constant and still present (3 days). No fever, weakness, cough, difficulty breathing or skin rash. Denies muscle aches. 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 PAST MEDICAL HX: Immunizations: up-to-date. The patient is post-menopausal. SOCIAL HX: Former smoker. No alcohol use or drug use. No infectious disease exposure. ABUSE ASSESSMENT: No report of abuse. FALL RISK ASSESSMENT: Fall risk assessment completed. No fall risk identified. NUTRITIONAL RISK ASSESSMENT: The nutritional risk assessment revealed no deficiencies. FUNCTIONAL ASSESSMENT: Functional assessment: no impairments noted. LEARNING NEEDS ASSESSMENT: The learning needs assessment revealed no barriers. --12:25 Shanda Mcdermott R.N. PROBLEMS: Upper Extremity Pain. Diabetes Mellitus. URI. Abscess. Cellulitis. Sinusitis. Contusion. Tetanus Status. Thyroid Disease. Lumbar Radiculopathy. Immunizations. --12:17 Shanda Mcdermott R.N. ADDITIONAL SURGERIES: Bladder Suspension. Tonsillectomy. --12:17 Shanda Mcdermott R.N. Interventions ID band on patient. --12:25 Shanda Mcdermott R.N. PHYSICAL ASSESSMENT Ambulatory to room. GENERAL / NEURO / PSYCH: Alert. Oriented X 4. Appears in no acute distress. HEENT: Pupils equal, round and reactive to light. No facial asymmetry noted. Mucous membranes are pink. RESPIRATORY: Respirations not labored. Chest nontender. Breath sounds within normal limits. CVS: Capillary refill less than 2 seconds. Pulses within normal limits. GI / : Abdomen soft and nontender. SKIN: Skin intact. Skin is warm and dry. Normal skin turgor. --12:25 Shanda Mcdermott R.N. NURSING PROGRESS NOTES The initial plan of care for this patient has been created This plan of care was discussed with the patient. Reassurance given. Two patient identifiers checked. Call light placed in reach. Bed placed in lowest position. Brakes of bed on. Patient ready for evaluation- chart flagged and ED physician notified. --12:26 Shanda Mcdermott R.N. DISPOSITION / DISCHARGE Departure time: 1345 PM. Condition at departure: unchanged and stable. The goals identified in the patient's plan of care were met. No learning barriers present. Discharge instructions provided and reviewed with the patient. Reviewed warnings. Reviewed medication(s). Patient verbalized understanding. Written instructions provided in Turkish. ( Pt refused EKG and toradol shot "wants to catch the bus"). No treatment instructions or referrals given to the patient. The patient was discharged by the nurse practitioner. She was discharged home and unaccompanied at time of discharge. She left the Emergency Department ambulatory and via bus. Patient driving. FALL RISK ASSESSMENT: Fall risk assessment completed. No fall risk identified. --13:47 Shanda Mcdermott R.N. 13:40 01/16/17. BP: 136/45. HR: 100. RR: 16. O2 saturation: 98%. Temp: 98.2 F. Pain level now: 03/15. --13:47 Shanda Mcdermott R.N. Locked/Released at 01/16/2017 13:48 by Shanda Mcdermott R.N.
--- NOTE | 2017-01-16 17:56 | ED MAR SUMMARY ---
..... Medication Administration Record [facility] [address] [place], [place] [id number] Patient: ARMANDO MUSE Visit ID: [id number] 66y, F Weight: 90.7 kg Height/Length: 66 in BMI: 32.3 ALLERGIES: morphine, Tylenol
--- NOTE | 2017-01-16 17:56 | ED DISCHARGE INSTRUCTIONS ---
Patient: ARMANDO MUSE General Instructions [facility] VisitID: [id number] [place] [address] 66y, F Registration Date/Time: 01/16/2017 Acute pain in the left ear and neck. INSTRUCTIONS Warnings: GENERAL WARNINGS: Return or contact your physician immediately if your condition worsens or changes unexpectedly, if not improving as expected, or if other problems arise. Specifically return if problem worsens. Prescription Medications: Ultram 50 mg tablets: take 1-2 orally every 6 hours as needed for pain. Dispense twenty (20). No refills. Substitution is permissible. Flexeril 10 mg: Take 1 orally every 8 hours as needed for muscle spasm. Dispense twenty (20). No refills. Substitution is permissible. Follow-up: Follow up with your doctor in about two days even if well. Call for an appointment. Summary of care provided to patient. Understanding of the discharge instructions verbalized by patient. ADDITIONAL INFORMATION Pain, Uncertain Cause [Acute] Pain is the bodys way of calling attention to a problem. Pain can be caused by many conditions - some minor, some serious. In your case, we were not able to find the exact cause for your pain. However, at this time there is no sign of any serious or life-threatening illness causing your pain. Sometimes more tests will be needed to determine the cause. Other times, just allowing more time to pass will either make it clear what the problem is, or the pain will go away by itself. Home Care: You may use acetaminophen (Tylenol) or ibuprofen (Motrin, Advil) to control pain, unless another medicine was prescribed. [NOTE: If you have chronic liver or kidney disease or ever had a stomach ulcer or GI bleeding, talk with your doctor before using these medicines.] Follow Up with your doctor or as advised by our staff. Get Prompt Medical Attention if any of the following occur: Changes in the pattern of your pain Appearance of new symptoms Fever of 100.4F (38C) or higher, or as directed by your healthcare provider Myositis Myositis is a class of rare auto-immune diseases that cause chronic inflammation. These include Polymyositis, which affects muscles throughout the body, and Dermatomyositis, which affects both skin and muscle. Other forms can affect the joints, heart, lungs and intestines. This condition can be hard to diagnose, because it resembles other diseases. Immune cells in the body usually attack and destroy viruses and harmful bacteria. In myositis, for unknown reasons, the immune system begins attacking the skin and/or muscles. Sometimes other parts of the body are also affected. Myositis may be triggered by exposure to certain chemicals, drugs, or viruses. It is important that you tell your doctor about any acri-fdd-zqirrjg drug use, infection, or exposure to other substances that occurred near the time when your symptoms started. Stopping the exposure or treating the infection may stop myositis. The symptoms of myositis can be very different depending on the type you have. Common symptoms are muscle weakness (especially muscles of the hips and shoulders), loss of energy (fatigue), rash or changes in the skin, and arthritis (swollen, painful joints). You may have trouble climbing stairs, getting out of chairs, lifting heavy things, or raising your arms overhead. Sometimes the muscles ache and become tender. The swallowing muscles may also be affected. The disease usually starts slowly and may take months or years to develop. You may notice that you have periods when your symptoms get worse (active disease) followed by periods where symptoms get better or go away completely (remission). Treatment options include medication, rest, physical therapy and exercise. Your doctor may prescribe oral steroids or drugs that suppress the immune system in order to slow down the progress of the disease. Home Care: If you were prescribed a medication, take it as directed. You may use acetaminophen (Tylenol) or ibuprofen (Motrin, Advil) to control pain, unless another medicine was prescribed. [NOTE: If you have chronic liver or kidney disease or ever had a stomach ulcer or GI bleeding, talk with your doctor before using these medicines.] Dont take ibuprofen or other NSAIDs (non-steroidal anti-inflammatory drugs) if you were prescribed prednisone. Remain physically active. Light exercise and physical activity are helpful to keep your muscles in the best shape possible. Talk to your doctor about an exercise plan that is right for you. If you are having muscle aches, rest as needed. Follow Up with your doctor or as advised by our staff. For more information contact: Myositis Association, www.myositis.org [employer] [phone], www.arthritis.org Return Promptly or contact your doctor if any of the following occur: Change in bowel or bladder habits Blood in the stool (black or red color) Unexpected weight loss A lump in the breast or elsewhere Difficulty swallowing Change in the appearance of a wart or mole Persistent cough, hoarseness or coughing up blood Night sweats or unexplained fevers Shortness of breath Arthralgia Arthralgia is the term for pain in or around the joint. It is not a disease but a symptom. This may involve one or more joints. Sometimes arthralgias move from joint to joint. There are many causes for joint pain. These include: Injury Osteoarthritis (from wearing out of the joint surface) Rheumatoid arthritis (an autoimmune disease) Gout (inflammation of the joint due to crystals in the joint fluid) Infection inside the joint Bursitis (inflammation of the fluid-filled sacs around the joint) Lupus and other collagen-vascular disease Home Care: Rest the involved joint(s) until your symptoms improve. You may use acetaminophen (Tylenol) or ibuprofen (Motrin, Advil) to control pain, unless another pain medicine was prescribed. [NOTE: If you have chronic liver or kidney disease or ever had a stomach ulcer or GI bleeding, talk with your doctor before using these medicines.] Follow Up with your doctor or as advised by our staff. [NOTE: If you had an X-ray it will be reviewed by a specialist. You will be notified of any new findings that may affect your care.] Return Promptly or contact your doctor if any of the following occurs: Pain increases Pain moves to other joints New rash appears Fever of 100.4F (38C) or higher, or as directed by your healthcare provider Shoulder Pain (Uncertain Cause) Shoulder pain often arises from the structures that surround the shoulder joint (the joint capsule, ligaments, tendons, muscles, and bursa). The joint itself contains cartilage that can become worn out or injured and can also be a source of pain. The correct treatment requires knowing the cause of the pain. Sometimes it is difficult to diagnose the exact cause of shoulder pain and referral to a specialist may be required. You may eventually need special tests such as CT scan, MRI, or arthroscopy (a procedure that uses special instruments to look inside the joint through a small incision). Shoulder pain can be treated initially with a sling or shoulder immobilizer and anti-inflammatory medicines such as ibuprofen. Special shoulder exercises may be needed. Follow-up with a specialist is important when pain is severe or does not go away after a few weeks. Home Care: If a sling was provided, leave it in place for the time advised by your doctor. If you are unsure how long to wear it, ask for advice. If the sling becomes loose, adjust it so that your forearm is level with the ground and the shoulder feels well supported. Apply an ice pack (ice cubes in a plastic bag, wrapped in a towel) over the injured area for 20 minutes every 1 to 2 hours the first day for pain relief. Continue this 3 to 4 times a day until the pain and swelling go away. You may use acetaminophen (Tylenol) or ibuprofen (Motrin, Advil) to control pain, unless another pain medicine was prescribed. (NOTE: If you have chronic liver or kidney disease or ever had a stomach ulcer or GI bleeding, talk with your doctor before using these medicines.) Shoulder pain may seem worse at night, when there is less to distract you from the pain. If you sleep on your side, try to keep your weight off your painful shoulder. Propping pillows behind you may prevent you from rolling over onto that shoulder during sleep. Shoulder joints become stiff if left in a sling for too long. Okaku-zh-pnctee exercises should usually be started within the first 10 days after injury. Consult your doctor on what type of exercises to do and how soon to start. You may remove the sling to shower or bathe. Follow Up with your doctor, or as advised by our staff, if you are not starting to improve within the next 5 days. Get Prompt Medical Attention if any of the following occur: Pain or swelling increases Hand or fingers becomes cold, blue, numb, or tingly Large amount of bruising of the shoulder or upper arm Tramadol Hydrochloride Oral tablet What is this medicine? TRAMADOL (TRA ma dole) is a pain reliever. It is used to treat moderate to severe pain in adults. How should I use this medicine? Take this medicine by mouth with a full glass of water. Follow the directions on the prescription label. If the medicine upsets your stomach, take it with food or milk. Do not take more medicine than you are told to take. Talk to your termite exterminator regarding the use of this medicine in children. Special care may be needed. What side effects may I notice from receiving this medicine? Side effects that you should report to your doctor or health manager care management as soon as possible: allergic reactions like skin rash, itching or hives, swelling of the face, lips, or tongue breathing difficulties, wheezing confusion itching light headedness or fainting spells redness, blistering, peeling or loosening of the skin, including inside the mouth seizures Side effects that usually do not require medical attention (report to your doctor or health manager care management if they continue or are bothersome): constipation dizziness drowsiness headache nausea, vomiting What may interact with this medicine? Do not take this medicine with any of the following medications: MAOIs like Carbex, Eldepryl, Marplan, Nardil, and Parnate This medicine may also interact with the following medications: alcohol or medicines that contain alcohol antihistamines benzodiazepines bupropion carbamazepine or oxcarbazepine clozapine cyclobenzaprine digoxin furazolidone linezolid medicines for depression, anxiety, or psychotic disturbances medicines for migraine headache like almotriptan, eletriptan, frovatriptan, naratriptan, rizatriptan, sumatriptan, zolmitriptan medicines for pain like pentazocine, buprenorphine, butorphanol, meperidine, nalbuphine, and propoxyphene medicines for sleep muscle relaxants naltrexone phenobarbital phenothiazines like perphenazine, thioridazine, chlorpromazine, mesoridazine, fluphenazine, prochlorperazine, promazine, and trifluoperazine procarbazine warfarin What if I miss a dose? If you miss a dose, take it as soon as you can. If it is almost time for your next dose, take only that dose. Do not take double or extra doses. Where should I keep my medicine? Keep out of the reach of children. Store at room temperature between 15 and 30 degrees C (59 and 86 degrees F). Keep container tightly closed. Throw away any unused medicine after the expiration date. What should I tell my health care provider before I take this medicine? They need to know if you have any of these conditions: brain tumor depression drug abuse or addiction head injury if you frequently drink alcohol containing drinks kidney disease or trouble passing urine liver disease lung disease, asthma, or breathing problems seizures or epilepsy suicidal thoughts, plans, or attempt; a previous suicide attempt by you or a family member an unusual or allergic reaction to tramadol, codeine, other medicines, foods, dyes, or preservatives or trying to get breast-feeding What should I watch for while using this medicine? Tell your doctor or health manager care management if your pain does not go away, if it gets worse, or if you have new or a different type of pain. You may develop tolerance to the medicine. Tolerance means that you will need a higher dose of the medicine for pain relief. Tolerance is normal and is expected if you take this medicine for a long time. Do not suddenly stop taking your medicine because you may develop a severe reaction. Your body becomes used to the medicine. This does NOT mean you are addicted. Addiction is a behavior related to getting and using a drug for a non-medical reason. If you have pain, you have a medical reason to take pain medicine. Your doctor will tell you how much medicine to take. If your doctor wants you to stop the medicine, the dose will be slowly lowered over time to avoid any side effects. You may get drowsy or dizzy. Do not drive, use machinery, or do anything that needs mental alertness until you know how this medicine affects you. Do not stand or sit up quickly, especially if you are an older patient. This reduces the risk of dizzy or fainting spells. Alcohol can increase or decrease the effects of this medicine. Avoid alcoholic drinks. You may have constipation. Try to have a bowel movement at least every 2 to 3 days. If you do not have a bowel movement for 3 days, call your doctor or health manager care management. Your mouth may get dry. Chewing sugarless gum or sucking hard candy, and drinking plenty of water may help. Contact your doctor if the problem does not go away or is severe. Cyclobenzaprine Hydrochloride Oral tablet What is this medicine? CYCLOBENZAPRINE (alden encarnacion) is a muscle relaxer. It is used to treat muscle pain, spasms, and stiffness. How should I use this medicine? Take this medicine by mouth with a glass of water. Follow the directions on the prescription label. If this medicine upsets your stomach, take it with food or milk. Take your medicine at regular intervals. Do not take it more often than directed. Talk to your termite exterminator regarding the use of this medicine in children. Special care may be needed. What side effects may I notice from receiving this medicine? Side effects that you should report to your doctor or health manager care management as soon as possible: allergic reactions like skin rash, itching or hives, swelling of the face, lips, or tongue chest pain fast heartbeat hallucinations seizures vomiting Side effects that usually do not require medical attention (report to your doctor or health manager care management if they continue or are bothersome): headache What may interact with this medicine? Do not take this medicine with any of the following medications: cisapride droperidol flecainide grepafloxacin halofantrine levomethadyl MAOIs like Carbex, Eldepryl, Marplan, Nardil, and Parnate nilotinib pimozide probucol sertindole This medicine may also interact with the following medications: abarelix alcohol contrast dyes dolasetron guanethidine medicines for cancer medicines for depression, anxiety, or psychotic disturbances medicines to treat an irregular heartbeat medicines used for sleep or numbness during surgery or procedure methadone octreotide ondansetron palonosetron phenothiazines like chlorpromazine, mesoridazine, prochlorperazine, thioridazine some medicines for infection like alfuzosin, chloroquine, clarithromycin, levofloxacin, mefloquine, pentamidine, troleandomycin tramadol vardenafil What if I miss a dose? If you miss a dose, take it as soon as you can. If it is almost time for your next dose, take only that dose. Do not take double or extra doses. Where should I keep my medicine? Keep out of the reach of children. Store at room temperature between 15 and 30 degrees C (59 and 86 degrees F). Keep container tightly closed. Throw away any unused medicine after the expiration date. What should I tell my health care provider before I take this medicine? They need to know if you have any of these conditions: heart disease, irregular heartbeat, or previous heart attack liver disease thyroid problem an unusual or allergic reaction to cyclobenzaprine, tricyclic antidepressants, lactose, other medicines, foods, dyes, or preservatives or trying to get breast-feeding What should I watch for while using this medicine? Check with your doctor or health manager care management if your condition does not improve within 1 to 3 weeks. You may get drowsy or dizzy when you first start taking the medicine or change doses. Do not drive, use machinery, or do anything that may be dangerous until you know how the medicine affects you. Stand or sit up slowly. Your mouth may get dry. Drinking water, chewing sugarless gum, or sucking on hard candy may help. You have been given the following additional information: Pain, Uncertain Cause (Acute) Myositis Arthralgia Shoulder Pain (Uncertain Cause) Tramadol Hydrochloride Oral tablet Cyclobenzaprine Hydrochloride Oral tablet (Electronically signed by Irene Morgan A.R.N.P. 01/16/2017 17:56)
--- NOTE | 2017-01-16 17:56 | ED MAR SUMMARY ---
..... Medication Administration Record [facility] [address] [place], [place] [id number] Patient: ARMANDO MUSE Visit ID: [id number] 66y, F Weight: 90.7 kg Height/Length: 66 in BMI: 32.3 ALLERGIES: morphine, Tylenol
--- NOTE | 2017-01-16 17:56 | ED MED RECONCILIATION SUMMARY ---
Patient: ARMANDO MUSE Medication Reconciliation Report [facility] VisitID: [id number] [address] [place] [address] 66y, F Registration Date/Time: 01/16/2017 Weight: 90.7 kg Height/Length: 66 in. BMI: 32.3 ALLERGIES: morphine, Tylenol The patient's Home Medications are listed below: THE FOLLOWING MEDICATIONS NEED TO BE RECONCILED: Adderall Oral 10 mg, 3x a day The source(s) of the original Home Medication information: patient The following Medications were given to the patient in the Emergency Department: None. The following Medications were prescribed to the patient: Ultram 50 mg tablets: take 1-2 orally every 6 hours as needed for pain. Dispense twenty (20). No refills. Substitution is permissible. -- Irene Morgan, Lalitha.R.N.P. Flexeril 10 mg: Take 1 orally every 8 hours as needed for muscle spasm. Dispense twenty (20). No refills. Substitution is permissible. -- Irene Morgan A.R.N.P.
--- NOTE | 2017-01-16 17:56 | ED MED RECONCILIATION SUMMARY ---
Patient: ARMANDO MUSE Medication Reconciliation Report [facility] VisitID: [id number] [address] [place] [address] 66y, F Registration Date/Time: 01/16/2017 Weight: 90.7 kg Height/Length: 66 in. BMI: 32.3 ALLERGIES: morphine, Tylenol The patient's Home Medications are listed below: THE FOLLOWING MEDICATIONS NEED TO BE RECONCILED: Adderall Oral 10 mg, 3x a day The source(s) of the original Home Medication information: patient The following Medications were given to the patient in the Emergency Department: None. The following Medications were prescribed to the patient: Ultram 50 mg tablets: take 1-2 orally every 6 hours as needed for pain. Dispense twenty (20). No refills. Substitution is permissible. -- Irene Morgan, Lalitha.R.N.P. Flexeril 10 mg: Take 1 orally every 8 hours as needed for muscle spasm. Dispense twenty (20). No refills. Substitution is permissible. -- Irene Morgan A.R.N.P.
== END 2017-01-16 13:45 | disposition home or self-care (01) ==
LOC: ED SRH 12:07
DX: H92.02 Otalgia, left ear (principal); M54.2 Cervicalgia; E11.9 Type 2 diabetes mellitus without complications; Z87.891 Personal history of nicotine dependence; Z88.5 Allergy status to narcotic agent